=== PATIENT | female | born 1945 | race Two or more races ===

== ENCOUNTER → 2016-12-05 | Outpatient (CLI) | payer OTHER | END | disposition home or self-care (01) | LOC: CFH 08:40 | PROVIDERS: ATTEND Family Medicine | DX: Z12.31 Encounter for screening mammogram for malignant neoplasm of breast (principal); R10.11 Right upper quadrant pain | CPT/HCPCS: 76700; G0202 ==

== ENCOUNTER 2017-09-24 15:44 | Emergency (ER) | payer OTHER ==
[~2017-09-24] VITALS: Ht 152.4 cm; Wt 70.0 kg
[2017-09-24 15:52] VITALS: BP 130/64
[2017-09-24] MEDS ORDERED: PLEASE ENTER ALLERGIES MC SCH (16:00)
[2017-09-24] MEDS ORDERED: HYDROcodone/APAP 5/325 TABLET PO ONE ×2 (16:00→16:30)
[2017-09-24] MEDS ORDERED: HYDROcodone/APAP 5/325 TABLET ONE ×2 (16:08→16:17)
[2017-09-24] MEDS ORDERED: ESCI5TAB PO (16:46)
[2017-09-24] MEDS ORDERED: PRED5TAB PO (16:46)
[2017-09-24] MEDS ORDERED: METH2.5T PO (16:46)
[2017-09-24] MEDS ORDERED: LEVO50TA5 PO (16:46)
[2017-09-24] MEDS ORDERED: FURO40TA6 PO (16:46)
[2017-09-24] MEDS ORDERED: OMEP40CA6 PO (16:46)
[2017-09-24] MEDS ORDERED: ALPR0.254 PO (16:46)
[2017-09-24] MEDS ORDERED: HYDR-3307 PO (16:46)
[2017-09-24] MEDS ORDERED: FOLI-17 PO (16:46)
[2017-09-24] MEDS ORDERED: POTA10TA5 PO (16:46)
[2017-09-24] MEDS ORDERED: GABA300C10 PO (16:46)
== END 2017-09-24 17:37 | disposition home or self-care (01) ==
LOC: ED 17:05
DX: S92.354A Nondisplaced fracture of fifth metatarsal bone, right foot, initial encounter for closed fracture (principal); S70.01XA Contusion of right hip, initial encounter; S80.01XA Contusion of right knee, initial encounter; G89.4 Chronic pain syndrome; W06.XXXA Fall from bed, initial encounter; Y93.89 Activity, other specified; Y92.009 Unspecified place in unspecified non-institutional (private) residence as the place of occurrence of the external cause; Y99.9 Unspecified external cause status
CPT/HCPCS: 93005; 99284

== ENCOUNTER → 2018-03-01 | Outpatient (CLI) | payer OTHER ==
[~2018-03-01] MED LIST: ALPR0.254 PO; ESCI5TAB PO; FOLI-17 PO; FURO40TA6 PO; GABA300C10 PO; HYDR-3307 PO; LEVO50TA5 PO; METH2.5T PO; OMEP40CA6 PO; POTA10TA5 PO; PRED5TAB PO
== END | disposition home or self-care (01) ==
LOC: RAD 17:27
PROVIDERS: ATTEND Internal Medicine Geriatric Medicine
DX: D73.4 Cyst of spleen (principal)
CPT/HCPCS: 74177

== ENCOUNTER 2018-05-26 08:56 | Inpatient (IN) | payer OTHER ==
[~2018-05-26] VITALS: Ht 152.4 cm; Wt 73.8 kg
[2018-05-26] MEDS ORDERED: VANCOMYCIN PER PHARMACY IV ONE (10:00)
[2018-05-26] MEDS ORDERED: SODIUM CHLORIDE 0.9% 1,000ML IVBOLUS ONE ×2 (10:00)
[2018-05-26] MEDS ORDERED: PIPERACILLIN/TAZO/PMX 3.375GM 50 ML IVPB ONE (10:00)
[2018-05-26] MEDS ORDERED: SODIUM CHLORIDE FLUSH 10ML SYR IVF ONE (10:00)
[2018-05-26 10:01] LABS: MEAN CORPUSCULAR HEMOGLOBIN 32.8 pg (27.0-34.8); MEAN CORPUSCULAR VOLUME 99.5 fL (80-100); MEAN PLATELET VOLUME 7.9 fL (7.4-10.4); PLATELET COUNT 213 x10^3/uL (130-400); RED BLOOD COUNT 2.85 x10^6/uL (3.82-5.3); RED CELL DISTRIBUTION WIDTH 17.7 % (9.6-15.2)
[2018-05-26 10:12] LABS: ALANINE AMINOTRANSFERASE 19 U/L (12-78); ANION GAP 7 mmol/L (5-15); CALCIUM 8.6 mg/dL (8.5-10.1); CHLORIDE 104 mmol/L (98-107); CREATININE 0.91 mg/dL (0.55-1.02)
[2018-05-26 10:13] LABS: CULTURE INDICATED? YES; MICROSCOPIC INDICATED
[2018-05-26 10:19] LABS: ALKALINE PHOSPHATASE 83 U/L (45-117); BILIRUBIN,TOTAL 0.7 mg/dL (0.2-1.0); TOTAL PROTEIN 7.1 g/dL (6.4-8.2)
[2018-05-26] MEDS ORDERED: PIPERACILLIN/TAZO/PMX 3.375GM 50 ML ONE (10:19)
[2018-05-26] MEDS ORDERED: VANCOMYCIN 1,400 MG in SODIUM CHLORIDE 0.9% 250 ML IV ONE (10:30)
[2018-05-26] MEDS ORDERED: SPIR25TA5 PO (10:33)
[2018-05-26] MEDS ORDERED: TIZA4CAP PO (10:37)
[2018-05-26] MEDS ORDERED: PREG50CA PO (10:37)
[2018-05-26 10:53] LABS: BASOPHILS # (AUTO) 0.01 x10^3/uL (0-0.1); BASOPHILS % (AUTO) 0 % (0-1); EOSINOPHILS # (AUTO) 0.01 x10^3/uL (0-0.4); EOSINOPHILS % (AUTO) 0 % (1-7); LYMPHOCYTES # (AUTO) 0.29 x10^3/uL (1-3.4); LYMPHOCYTES % (AUTO) 3 % (22-44); MD MORPH REVIEW ONLY; MONOCYTES # (AUTO) 0.07 x10^3/uL (0.2-0.8); MONOCYTES % (AUTO) 1 % (2-9); NEUTROPHILS # (AUTO) 10.36 x10^3/uL (1.8-6.8); NEUTROPHILS % (AUTO) 96 % (42-75)
[2018-05-26 10:54] LABS: <PLATELET ESTIMATE> ADEQUATE; <PLT MORPHOLOGY> NORMAL PLT MORPH; ANISOCYTOSIS 1+
[2018-05-26] MEDS ORDERED: ALBUTEROL SULFATE 2.5MG/0.5ML ONE (10:55)
[2018-05-26] MEDS ORDERED: ALBUTEROL SULFATE 2.5 MG/3 ML NPPB ONE (11:00)
[2018-05-26] MEDS ORDERED: BISACODYL 10 MG SUPP PR PRN (11:30)
[2018-05-26] MEDS ORDERED: DOCUSATE 100 MG CAPSULE PO PRN (11:30)
[2018-05-26] MEDS ORDERED: ONDANSETRON 2MG/ML, 2ML IVPush PRN (11:30)
[2018-05-26] MEDS ORDERED: POLYETHYLENE GLYCOL 17 GM PACKET PO PRN (11:30)
[2018-05-26] MEDS ORDERED: ENALAPRILAT 1.25 MG/ML, 2ML IVPush PRN (11:30)
[2018-05-26] MEDS ORDERED: ACETAMINOPHEN 325 MG TABLET PO PRN (11:30)
[2018-05-26 12:15] VITALS: BP 121/67
[2018-05-26] MEDS: methylPREDNISolone SOD SUCC 125 MG/2 ML IVPush SCH ×3 (12:43→23:44)
[2018-05-26] MEDS: ENOXAPARIN 40 MG/0.4 ML SQ SCH (12:43)
[2018-05-26] MEDS: AMPICILLIN/SULBACTAM 3 GM in SODIUM CHLORIDE 0.9% 100 ML IV SCH ×2 (14:01→17:53)
[2018-05-26] MEDS: ALBUTEROL SULFATE 2.5 MG/3 ML NPPB SCH ×3 (15:13→22:30)
[2018-05-26] MEDS: DOXYCYCLINE 100 MG in DEXTROSE 5% 250 ML IV SCH (15:24)
[2018-05-26] MEDS: HYDROcodone/APAP 10/325 MG TABLET PO SCH ×2 (16:06→22:47)
[2018-05-26 19:30] VITALS: BP 117/63
[2018-05-26] MEDS: PREGABALIN 25 MG CAPSULE PO SCH (20:26)
[2018-05-26] MEDS: GUAIFENESIN ER 600 MG TABLET PO SCH (20:26)
[2018-05-26] MEDS: SODIUM CHLORIDE FLUSH 10ML SYR IVF SCH (20:27)
[2018-05-26] MEDS: TIZANIDINE 4MG TABLET PO SCH ×2 (20:27→22:47)
[2018-05-27] MEDS: AMPICILLIN/SULBACTAM 3 GM in SODIUM CHLORIDE 0.9% 100 ML IV SCH ×5 (00:46→23:34)
[2018-05-27] MEDS: DOXYCYCLINE 100 MG in DEXTROSE 5% 250 ML IV SCH ×2 (01:38→16:07)
[2018-05-27 03:53] VITALS: BP 119/54
[2018-05-27 05:31] LABS: MEAN CORPUSCULAR HEMOGLOBIN 33.5 pg (27.0-34.8); MEAN CORPUSCULAR HGB CONC 33.1 g/dL (32.4-35.8); MEAN CORPUSCULAR VOLUME 101.4 fL (80-100); PLATELET COUNT 189 x10^3/uL (130-400); RED BLOOD COUNT 2.83 x10^6/uL (3.82-5.3); RED CELL DISTRIBUTION WIDTH 17.6 % (9.6-15.2)
[2018-05-27 05:39] LABS: CHLORIDE 108 mmol/L (98-107)
[2018-05-27 05:49] LABS: ANION GAP 9 mmol/L (5-15); CALCIUM 8.5 mg/dL (8.5-10.1); CREATININE 0.61 mg/dL (0.55-1.02)
[2018-05-27] MEDS: HYDROcodone/APAP 10/325 MG TABLET PO SCH ×5 (06:00→23:34)
[2018-05-27] MEDS: ALBUTEROL SULFATE 2.5 MG/3 ML NPPB SCH ×4 (06:00→19:19)
[2018-05-27 06:04] LABS: BASOPHILS % (AUTO) 0 % (0-1); EOSINOPHILS % (AUTO) 0 % (1-7); LYMPHOCYTES # (AUTO) 0.26 x10^3/uL (1-3.4); LYMPHOCYTES % (AUTO) 3 % (22-44); MD SCAN; MONOCYTES # (AUTO) 0.03 x10^3/uL (0.2-0.8); MONOCYTES % (AUTO) 0 % (2-9); NEUTROPHILS # (AUTO) 8.25 x10^3/uL (1.8-6.8); NEUTROPHILS % (AUTO) 97 % (42-75)
[2018-05-27] MEDS: methylPREDNISolone SOD SUCC 125 MG/2 ML IVPush SCH ×4 (06:44→23:34)
[2018-05-27 07:20] VITALS: BP 133/53
[2018-05-27] MEDS: GUAIFENESIN ER 600 MG TABLET PO SCH ×3 (09:00→20:27)
[2018-05-27] MEDS: LEVOTHYROXINE 50 MCG TABLET PO SCH ×2 (09:00→12:06)
[2018-05-27] MEDS: SODIUM CHLORIDE FLUSH 10ML SYR IVF SCH ×2 (09:00→20:26)
[2018-05-27] MEDS: FOLIC ACID 1 MG TABLET PO SCH (09:00)
[2018-05-27] MEDS: KETOROLAC 30 MG/1 ML IV PRN (10:01)
[2018-05-27] MEDS: ENOXAPARIN 40 MG/0.4 ML SQ SCH (12:05)
[2018-05-27 13:08] VITALS: BP 153/72
[2018-05-27 18:40] VITALS: BP 157/78
[2018-05-27] MEDS: PREGABALIN 25 MG CAPSULE PO SCH (20:26)
[2018-05-27] MEDS: TIZANIDINE 4MG TABLET PO SCH (23:34)
[2018-05-28 00:03] VITALS: BP 156/69
[2018-05-28] MEDS: DOXYCYCLINE 100 MG in DEXTROSE 5% 250 ML IV SCH ×2 (01:12→13:13)
[2018-05-28 05:27] LABS: ANION GAP 8 mmol/L (5-15); CALCIUM 8.8 mg/dL (8.5-10.1); CHLORIDE 112 mmol/L (98-107); CREATININE 0.75 mg/dL (0.55-1.02)
[2018-05-28] MEDS: methylPREDNISolone SOD SUCC 125 MG/2 ML IVPush SCH (05:35)
[2018-05-28] MEDS: HYDROcodone/APAP 10/325 MG TABLET PO SCH ×5 (05:35→22:15)
[2018-05-28] MEDS: LEVOTHYROXINE 50 MCG TABLET PO SCH (05:35)
[2018-05-28] MEDS: AMPICILLIN/SULBACTAM 3 GM in SODIUM CHLORIDE 0.9% 100 ML IV SCH ×3 (05:35→18:11)
[2018-05-28] MEDS: ALBUTEROL SULFATE 2.5 MG/3 ML NPPB SCH ×4 (07:00→19:20)
[2018-05-28 08:20] VITALS: BP 147/71
[2018-05-28] MEDS: GUAIFENESIN ER 600 MG TABLET PO SCH ×2 (08:36→20:56)
[2018-05-28] MEDS: FOLIC ACID 1 MG TABLET PO SCH (08:37)
[2018-05-28] MEDS: SODIUM CHLORIDE FLUSH 10ML SYR IVF SCH ×2 (08:57→20:57)
[2018-05-28] MEDS: KETOROLAC 30 MG/1 ML IV PRN (09:17)
[2018-05-28] MEDS: ENOXAPARIN 40 MG/0.4 ML SQ SCH (12:22)
[2018-05-28 13:08] LABS: TROPONIN I < 0.015 ng/mL (0.000-0.045)
[2018-05-28 13:59] VITALS: BP 127/65
[2018-05-28 19:53] VITALS: BP 156/77
[2018-05-28] MEDS: TIZANIDINE 4MG TABLET PO SCH ×2 (20:56→22:15)
[2018-05-28] MEDS: PREGABALIN 25 MG CAPSULE PO SCH (20:56)
[2018-05-29] MEDS: AMPICILLIN/SULBACTAM 3 GM in SODIUM CHLORIDE 0.9% 100 ML IV SCH ×3 (00:10→12:49)
[2018-05-29] MEDS: DOXYCYCLINE 100 MG in DEXTROSE 5% 250 ML IV SCH ×2 (01:03→13:40)
[2018-05-29 01:28] VITALS: BP 134/72
[2018-05-29] MEDS: HYDROcodone/APAP 10/325 MG TABLET PO SCH ×3 (06:04→16:00)
[2018-05-29] MEDS: LEVOTHYROXINE 50 MCG TABLET PO SCH (06:04)
[2018-05-29 08:45] VITALS: BP 127/66
[2018-05-29] MEDS: FOLIC ACID 1 MG TABLET PO SCH (08:45)
[2018-05-29] MEDS: GUAIFENESIN ER 600 MG TABLET PO SCH (08:45)
[2018-05-29] MEDS: SODIUM CHLORIDE FLUSH 10ML SYR IVF SCH (08:45)
[2018-05-29] MEDS: ALBUTEROL SULFATE 2.5 MG/3 ML NPPB SCH ×3 (09:00→15:00)
[2018-05-29] MEDS: ENOXAPARIN 40 MG/0.4 ML SQ SCH (11:38)
[2018-05-29] MEDS ORDERED: AMOX1TAB64 PO (12:47)
[2018-05-29] MEDS ORDERED: DOXY100T PO (12:47)
[2018-05-29] MEDS ORDERED: PRED20TA PO (12:47)
[2018-05-29 14:11] VITALS: BP 158/74
== END 2018-05-29 16:48 | disposition home health service (06) | DRG 177 ==
LOC: ED 10:36 → EDIP 10:37 → ED 10:53 → 4NOR 12:10 → DCLOUNGE 05-29 16:31
PROVIDERS: ADMIT Hospitalist; ATTEND Hospitalist
DX: J15.211 Pneumonia due to Methicillin susceptible Staphylococcus aureus (principal); J96.00 Acute respiratory failure, unspecified whether with hypoxia or hypercapnia; E44.0 Moderate protein-calorie malnutrition; E87.1 Hypo-osmolality and hyponatremia; J44.0 Chronic obstructive pulmonary disease with (acute) lower respiratory infection; J45.901 Unspecified asthma with (acute) exacerbation; N39.0 Urinary tract infection, site not specified; R73.9 Hyperglycemia, unspecified; B96.20 Unspecified Escherichia coli [E. coli] as the cause of diseases classified elsewhere; D64.9 Anemia, unspecified; E03.9 Hypothyroidism, unspecified; M06.9 Rheumatoid arthritis, unspecified; Z66 Do not resuscitate; Z82.49 Family history of ischemic heart disease and other diseases of the circulatory system; Z86.711 Personal history of pulmonary embolism; Z68.31 Body mass index [BMI] 31.0-31.9, adult; Z79.899 Other long term (current) drug therapy; Z90.49 Acquired absence of other specified parts of digestive tract; Z87.81 Personal history of (healed) traumatic fracture
CPT/HCPCS: 36415; 36600; 71045; 80048; 80053; 81001; 82728; 82803; 82962; 83540; 83550; 83605; 84466; 84484; 85025; 87040; 87070; 87077; 87086; 87186; 87205; 93005; 94640; 96365; G0378; J0295; J1650; J1885; J2543; J3370; J7060; J7613; J2930; J7030; J7050; J7512

== ENCOUNTER → 2019-01-17 | Outpatient (CLI) | payer MEDICARE ==
[~2019-01-17] MED LIST changes: +AMOX1TAB64 PO; +DOXY100T PO; +PRED20TA PO; +PREG50CA PO; +SPIR25TA5 PO; +TIZA4CAP PO
== END | disposition home or self-care (01) ==
LOC: CFH 15:43
PROVIDERS: ATTEND Registered Nurse
DX: I35.8 Other nonrheumatic aortic valve disorders (principal); I31.3 Pericardial effusion (noninflammatory); J45.40 Moderate persistent asthma, uncomplicated; I51.7 Cardiomegaly
CPT/HCPCS: 93306

== ENCOUNTER 2019-09-06 11:00 | Emergency (ER) | payer MEDICARE ==
[~2019-09-06] VITALS: Ht 152.4 cm; Wt 64.2 kg
[~2019-09-06 11:00] MED LIST changes: -HYDR-3307 PO; +HYDR-36 PO; +OMEP40CA42 PO; -OMEP40CA6 PO
[2019-09-06 11:02] VITALS: BP 141/54
[2019-09-06] MEDS ORDERED: SODIUM CHLORIDE FLUSH 10ML SYR IVF ONE (11:30)
[2019-09-06] MEDS ORDERED: FAMOTIDINE 20 MG/2 ML IVPush ONE (11:30)
[2019-09-06] MEDS ORDERED: MAALOX/HYOSCYAMINE/LIDOCAINE 45 ML BTL PO ONE (11:30)
[2019-09-06] MEDS ORDERED: SODIUM CHLORIDE 0.9% 1,000ML IVBOLUS ONE (11:30)
[2019-09-06] MEDS ORDERED: FAMOTIDINE 20 MG/2 ML ONE (11:50)
[2019-09-06] MEDS ORDERED: MAALOX/HYOSCYAMINE/LIDOCAINE 45 ML BTL ONE (11:50)
[2019-09-06 12:01] LABS: BASOPHILS % (AUTO) 0 % (0-1); EOSINOPHILS # (AUTO) 0.03 x10^3/uL (0-0.4); EOSINOPHILS % (AUTO) 1 % (1-7); LYMPHOCYTES # (AUTO) 0.33 x10^3/uL (1-3.4); LYMPHOCYTES % (AUTO) 5 % (22-44); MD NO; MEAN CORPUSCULAR HEMOGLOBIN 34.1 pg (27.0-34.8); MEAN CORPUSCULAR HGB CONC 32.6 g/dL (32.4-35.8); MEAN CORPUSCULAR VOLUME 104.7 fL (80-100); MEAN PLATELET VOLUME 8.3 fL (7.4-10.4); MONOCYTES # (AUTO) 0.27 x10^3/uL (0.2-0.8); MONOCYTES % (AUTO) 5 % (2-9); NEUTROPHILS # (AUTO) 5.49 x10^3/uL (1.8-6.8); NEUTROPHILS % (AUTO) 90 % (42-75); PLATELET COUNT 206 x10^3/uL (130-400); RED CELL DISTRIBUTION WIDTH 18.3 % (9.6-15.2)
[2019-09-06 12:05] LABS: CHLORIDE 110 mmol/L (98-107)
[2019-09-06 12:18] LABS: ALANINE AMINOTRANSFERASE 33 U/L (12-78); ALBUMIN 3.1 g/dL (3.4-5.0); ALKALINE PHOSPHATASE 56 U/L (45-117); ANION GAP 7 mmol/L (5-15); BILIRUBIN,TOTAL 0.6 mg/dL (0.2-1.0); CALCIUM 8.2 mg/dL (8.5-10.1); CREATININE 0.99 mg/dL (0.55-1.02); TOTAL PROTEIN 6.8 g/dL (6.4-8.2); TROPONIN I < 0.015 ng/mL (0.000-0.045)
[2019-09-06] MEDS ORDERED: OMNIPAQUE 350 MG/ML, 100ML BOTTLE ONE (12:50)
--- NOTE | 2019-09-06 14:03 | NUR ---
PT STATING SHE IS STILL IN PAIN. PAIN IS IN THE ABDOMEN. PROVIDER MADE AWARE.
--- NOTE | 2019-09-06 16:11 | NUR ---
i am assuming care of this pt from meghana (rn) while he enjoys a lunchbreak. sbar report was exchanged at the bedside.
== END 2019-09-06 16:53 | disposition home or self-care (01) ==
LOC: ED 16:27
DX: G89.29 Other chronic pain (principal); R10.13 Epigastric pain; B37.0 Candidal stomatitis; J45.909 Unspecified asthma, uncomplicated; M19.90 Unspecified osteoarthritis, unspecified site
CPT/HCPCS: 36415; 74177; 80053; 83605; 84484; 85025; 93005; 96374; 99284; J3490; J7030; Q9967